=== PATIENT | female | born 1950 | race Caucasian/White ===

== ENCOUNTER → 2016-06-25 | Outpatient (CLI) | payer MEDICARE, BC ==
[~2016-06-25] MED LIST: ALBUTEROL17 GM INH; AMOXICILLIN500 M1 PO; ASPIRIN81 M2 PO; BENICAR20 MG PO; CARVEDILOL3.125 MG PO; CENTRUM SILVER PO; DEMADEX PO; DICLOFENAC; PREDNISONE PO; ROBAXIN500 MG PO; SPIRIVA18 MCG INH; STOOL SOFTENER100 M1 PO; TYLENOL #3 PO; ZOCOR20 MG PO
--- NOTE | ~2016-06-25 | CR211 ---
[facility] A Service of [facility] [place] RADIOLOGY TEXT RESULTS PATIENT: LYDIA PETERS V LOCATION: [facility] : 48 UNIT #: [id number] AGE: [address]: Ashley Tellez MD SEX: F ORDER DR: [id number] [facility]. [place], [place] [address] [id number] O MR#: [id number] Acc #: [id number] NAME: LYDIA PETERS : 1950 SEX: F STUDY DATE/TIME: UNIT: [facility] ROOM: STUDY DESCRIPTION: CR Ribs Uni 2 View W PA Ch Rt Attending Physician: Ashley Tellez M.D. Referring Physician: Ashley Tellez M.D. Ordering Physician: Ashley Tellez M.D. Primary Care Physician: Ashley Tellez M.D. MEDICAL IMAGING REPORT This report is preliminary unless electronic signature is present EXAM Chest with right rib series 06/25/2016 1325 hours HISTORY Intermittent right rib pain for several months worsening over the last 2 days. No acute injury. COMPARISON Chest film 02/06/2016 FINDINGS Upright chest film demonstrates normal cardiac, mediastinal and hilar contours. The lungs are well expanded and clear. There is no pleural effusion or pneumothorax. AP and oblique views of the right ribs demonstrate no rib lesion or fracture. Note is made of degenerative spurring in the lower thoracic spine. IMPRESSION 1. No acute findings in the chest. 2. No rib lesion or rib fracture. 3. 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 Dictated by... Leeanne Najera M.D. THIS IS AN ELECTRONICALLY VERIFIED REPORT Leeanne Najera M.D. at 06/25/2016 6:47 PM SMM/to TD: 06/25/2016 15:14 JOB #: [id number] [facility] A Service of [facility] [place] RADIOLOGY TEXT RESULTS PATIENT: LYDIA PETERS V LOCATION: [facility] #: [id number] : [birth year] UNIT #: [id number] AGE: [address]: Ashley Tellez MD SEX: F ORDER DR: MEDICAL IMAGING REPORT Page 1 of 1 COPY
== END | disposition home or self-care (01) ==
LOC: CRAD 13:06
DX: R07.81 Pleurodynia (principal); M46.04 Spinal enthesopathy, thoracic region
CPT/HCPCS: 71101